=== PATIENT | female | born 1965 | race Caucasian/White ===

== ENCOUNTER 2017-08-06 12:15 | Emergency (ER) | payer BC ==
[2017-08-06 12:22] VITALS: BP 147/85; PULSE 90; RESP 16; TEMP 98.6; O2SAT 98
== END 2017-08-06 14:00 | disposition left against medical advice (07) ==
DX: Z53.21 Procedure and treatment not carried out due to patient leaving prior to being seen by health care provider (principal)

== ENCOUNTER 2017-08-06 16:09 | Emergency (ER) | payer BC ==
[2017-08-06 16:21] VITALS: TEMP 98.2
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
[2017-08-06 16:57] VITALS: BP 139/80; PULSE 92; RESP 18; O2SAT 96
== END 2017-08-06 16:57 | disposition home or self-care (01) ==
LOC: CED 16:09
DX: S09.90XA Unspecified injury of head, initial encounter (principal); W22.8XXA Striking against or struck by other objects, initial encounter; Y92.89 Other specified places as the place of occurrence of the external cause